=== PATIENT | male | born 1945 | race Caucasian/White ===

== ENCOUNTER 2020-12-09 13:15 | Outpatient (RCR) | payer MEDICARE, SELFPAY ==
--- NOTE | 2020-11-18 15:10 | PTOPEVAL ---
PHYSICAL THERAPY EVALUATION Thank you for referring Faustino Puentes to [facility].? Guanakito was evaluated with a dx of left adhesive capsulitis. The patient is scheduled to be seen for therapy? 2 x/week for 3 weeks. Please review, sign, date and return this plan of care ED. I agree with and certify that the following plan of care is medically necessary. Referring Physician Date Attending Provider: Tristan Wood MD *PT Outpatient Evaluation Start: 11/18/20 12:42 Freq: Status: Active Protocol: Document 11/18/20 13:22 MLV (Rec: 11/18/20 14:59 [facility] [id number]) Evaluation Information Problem Diagnosis left shoulder pain Onset 2 months ago Cause fell Additional Evaluation Detail Patient fell and twisted ankle and hurt left shoulder. Prior to fall, the patient had no shoulder troubles. The patient has no trouble with the ankle but the shoulder continues to hurt. The patient saw MD and can only take tylenol prn due to heart issues. The patient is active and does rehab projects. Diagnostic Tests X-Rays For This Problem Yes: no fractures Prior Level of Function Activity Level (Last 3 Months) Occupation retired/active Hand Dominance Left Activity of Daily Living Ability Independent Indoor/Home Mobility Independent Community Mobility Independent Pain Assessment Timing of Pain Assessment Timing of Pain Assessment Assessment Pain Scale Pain Scale Used Numeric (1 - 10) Self Report Pain Assessment Left Shoulder(s) Reported Pain Level 0 Pain Frequency Acute Other Pain Description more stiff than painful Greatest Pain Intensity 2 Pain Score Pain Score 0: Self Report Interventions Used Interventions Used By Clinicians Education,Heat Pain Relief Interventions Used By Activity/ADL's Patient Upper Extremity Range of Motion General Upper Extremity Range of Motion Gross Upper Extremity Range of Motion active shoulder motion: right Comments flexion 156, abduction 156, extension 80, ER 78, IR 76 degrees left shoulder flexion 124, abduction 121, extension 52, ER 48, IR 75 degrees *elbow/wrist/hand symmetrical and WFL's Upper Extremity Muscle
--- NOTE | 2020-11-29 11:56 | PCPTNOTE ---
Patient called & cancelled scheduled appointment this date due to conflict with another appointment.
--- NOTE | 2020-12-09 14:38 | PTOPEVAL ---
PHYSICAL THERAPY DISCHARGE SUMMARY Thank you for referring Faustino Puentes to [facility].? Guanakito has been seen for therapy? 6 visits for the dx of left shoulder adhesive capsulitis. The patient has met most goals and to continue on own. D/C PT at this time. Please review, sign, date and return this plan of care. I agree with and certify the following plan of care. Referring Physician Date Attending Provider: Tristan Wood MD *PT Outpatient Discharge Start: 11/18/20 12:42 Freq: Status: Active Protocol: Document 12/09/20 13:21 MLV (Rec: 12/09/20 14:16 [facility] [id number]) Assessment Status Discharge Evaluation Information Problem Diagnosis left shoulder pain Onset 2 months ago Cause fell Additional Evaluation Detail Patient feels he is about 75% better at his shoulder for pain and mobility. Patient has mild pain at A-C joint with certain motions but much less than at eval. Patient has no trouble with the home exercises. Patient feels he will be able to continue his exercising on his own and feels it will work better to do on his own because he is having a surgery soon and will be restricted some. Patient states he will call if he has any trouble at home with progression. Pain Assessment Timing of Pain Assessment Timing of Pain Assessment Assessment Self Report Self Report Pain Level 0 Pain Score Pain Score 0: Self Report Upper Extremity Range of Motion General Upper Extremity Range of Motion Gross Upper Extremity Range of Motion active shoulder motion: right Comments flexion 156, abduction 156, extension 80, ER 78, IR 76 degrees left shoulder flexion 134, abduction 142, extension 56, ER 56, IR 75 degrees *elbow/wrist/hand symmetrical and WFL's. Patient achieves 155 degrees elevation passively and 65 degrees ER passively. Patient reports pain restricting the arm elevation motion. Upper Extremity Muscle Strength Testing General Upper Extremity
== END 2020-12-12 08:50 | disposition home or self-care (01) ==
LOC: ANHPT 13:15
PROVIDERS: Family Provider Family Medicine; PCP Internal Medicine; Visit Provider Orthopaedic Surgery
DX: M75.02 Adhesive capsulitis of left shoulder (principal)
CPT/HCPCS: 97110; 97140; 97161